=== PATIENT | female | born 1950 | race Caucasian/White ===

== ENCOUNTER 2017-03-21 05:26 | Day surgery (SDC) | payer MEDICARE, OTHER ==
[~2017-03-21 05:26] MED LIST: Dextrose 5%-0.45% NaCl 1,000 ML IV SCH; Sodium Chloride 0.9% 10 ML Syringe FLUSH PRN
[2017-03-21] MEDS ORDERED: Dextrose 5%-0.45% NaCl 1,000 ML IV SCH (06:00)
[2017-03-21] MEDS ORDERED: Sodium Chloride 0.9% 10 ML Syringe FLUSH PRN (06:00)
[2017-03-21] MEDS ORDERED: fentaNYL 100 MCG/2 ML SDV ONE (06:18)
[2017-03-21] MEDS ORDERED: Midazolam 1 MG/ML 2 ML SDV ONE (06:18)
[2017-03-21] MEDS ORDERED: fentaNYL 100 MCG/2 ML SDV IV ONE ×3 (06:32→15:18)
[2017-03-21] MEDS ORDERED: Midazolam 1 MG/ML 2 ML SDV IV ONE ×6 (06:34→15:18)
--- NOTE | 2017-03-21 07:21 | OR ---
DATE: 03/21/2017 PROCEDURES: Total colonoscopy. INSTRUMENT USED: CF-H180AL Olympus video colonoscope. PREMEDICATIONS: Fentanyl 100 mcg intravenous, Versed 3 mg intravenous, nasal O2 cannula. The procedure was done under pulse oximetry, BP recording, and mixer runner. INDICATION: Screening colonoscopic examination is done for detection of any polypoid lesions and removal, endoscopic hemostasis therapy if needed. DESCRIPTION OF PROCEDURE: Initial rectal exam was unremarkable. Rigid anoscopy was normal. The colonoscope was passed with relative ease up to the ileocecal area. Photographs were taken of the normal-appearing cecum, identified by landmarks of appendiceal orifice and double-bulged ileocecal folds. The colon was found to be tortuous and redundant. No bleeding was noted from any of the visualized areas at the commencement of the examination. Few diverticula were noted in the distal left colon along with deformity. No stricture. No vascular ectasia. No large isolated ulcerations seen. No evidence of diffuse inflammatory bowel disease in the form of friability, contact bleeding, or ulcerations. No polyp or tumor mass were identified. Probing the proximal sides of folds and flexures using adequate distention and clearing up the stool material, withdrawal of the scope was made cecum to rectum, time over 6 minutes. No bleeding was noted from any of the visualized areas at the completion of examination. IMPRESSION: Diverticulosis. The patient tolerated the procedure well. [facility] /[id number]
[2017-03-21 10:31] VITALS: BP 135/80
== END 2017-03-21 09:00 | disposition home or self-care (01) ==
LOC: DL.ENDO 05:26
PROVIDERS: ATTEND Internal Medicine Gastroenterology
DX: Z12.11 Encounter for screening for malignant neoplasm of colon (principal); K57.30 Diverticulosis of large intestine without perforation or abscess without bleeding; E66.9 Obesity, unspecified; E04.2 Nontoxic multinodular goiter; Z91.09 Other allergy status, other than to drugs and biological substances; Z98.890 Other specified postprocedural states; Z79.899 Other long term (current) drug therapy
CPT/HCPCS: G0121; J2250; J3010; J7042

== ENCOUNTER → 2019-09-11 | Day surgery (SDC) | payer MEDICARE, OTHER ==
[~2019-09-11] MED LIST changes: +Acetaminophen 325 MG Tab PO PRN; +Apraclonidine 0.5% Ophth Soln 5 ML Bot EYERT ONE; +Balanced Salt Solution Ophth Irrig 500 ML Bottle IOCULAR ONE; +Cataract Ophth Solution EYERT ONE; +Chondroitin Sulfate/Hyaluronate Sodium Ophth Inj 0.75 ML Syringe EYERT ONE; +Dexamethasone 4 MG/ML SDV IV ONE; +Dexamethasone/Neomycin/Polymyxin B Ophth Oint 3.5 GM Tube EYERT ONE; -Dextrose 5%-0.45% NaCl 1,000 ML IV SCH; +Diclofenac Sodium 0.1% Ophth Soln 5 ML Bottle EYERT ONE; +Lidocaine 1% 30 ML SDV ONE; +Midazolam 1 MG/ML 2 ML SDV IV ONE; +Moxifloxacin 0.5% Ophth Soln 3 ML Bottle EYERT ONE; +Ondansetron 4 MG/2 ML SDV IVPUSH PRN; +Phenylephrine 10% Ophth Soln 5 ML Bot EYERT ONE; +Phenylephrine 10% Ophth Soln 5 ML Bot EYERT PRN; +Povidone-Iodine 5% Sterile Ophth Soln 30 ML Bottle EYERT ONE; +Proparacaine 0.5% Ophth Soln 15 ML Bottle EYERT ONE; +Sodium Chloride 0.9% 10 ML Syringe IV ONE; +Tetracaine HCl/PF 0.5% 4 ML Bottle EYERT ONE; +Timolol Maleate 0.5% Ophth Soln 5 ML Bottle EYERT ONE; +Vancomycin 500 MG SDV EYERT ONE
--- NOTE | 2019-09-11 12:53 | OR ---
DATE: 09/11/2019 PREOPERATIVE DIAGNOSIS: Visually significant mixed cataract, right eye. POSTOPERATIVE DIAGNOSIS: Visually significant mixed cataract, right eye. PROCEDURE: Extracapsular cataract extraction with intraocular lens implant, right eye. ANESTHESIA: Topical/local MAC. COMPLICATIONS: None. INDICATION: The patient was seen in the clinic with complaints of blurred vision. Examination revealed visually significant mixed cataract. She is symptomatic and requested cataract surgery. I explained options, I offered cataract surgery, and I explained risks preoperatively including, but not limited to infection, retinal detachment, loss of vision, need for additional surgery, and risks associated with anesthesia. We discussed implant options. She has requested a toric implant. She understands that she will likely require glasses for some activities, especially near tasks. OPERATIVE DESCRIPTION: After informed consent was obtained and the risks, benefits, and alternatives were explained, the patient was brought to the operative suite and topical anesthesia was administered. The patient was then prepped and draped in the sterile fashion and attention was placed on the right eye. A sterile lid speculum was placed into the right eye to allow operative exposure. A full-thickness paracentesis was made in the temporal portion of the operative eye. Preservative-free lidocaine 0.1 mL was injected into the anterior chamber followed by viscoelastic. A full-thickness corneal incision was then made into the anterior chamber. A bent needle cystotome was used to create a small arie in the anterior capsule. The capsulorrhexis forceps was then used to create a 360-degree curvilinear capsulorrhexis. The nucleus was then removed using a phacoemulsification handpiece and the remaining cortical material was then removed with irrigation and aspiration handpiece. Following removal of the cortical material, the capsular bag was then inspected and noted to be free of any holes or tears. Viscoelastic was then injected into the capsular bag and the intraocular lens was inserted into the capsular bag. Implant was oriented to correspond with preoperative corneal dee made with the patient in the upright position. The viscoelastic material was then removed from both the anterior and posterior chambers and from behind the IOL. The lens and capsular bag were then reinspected. The IOL was well centered and the capsular bag intact. The wound and paracentesis sites were inspected and hydrated with balanced saline solution. Both were found to be self-sealing. The intraocular pressure was assessed digitally and found to be within normal range. A good red reflex was noted at the completion of the procedure. No complications occurred during the operation. At the completion of the procedure, Maxitrol, Voltaren, and Iopidine drops were placed into the operative eye. A sterile eye shield was placed over the operative eye and the patient was transported to the postoperative recovery area having tolerated the procedure well. Postoperative instructions were given along with a postoperative appointment. The patient was advised to call with any questions or concerns. [facility] /[id number]
[2019-09-11 13:27] VITALS: BP 111/60; PULSE 68
== END | disposition home or self-care (01) ==
LOC: DL.SDS 10:37
PROVIDERS: ATTEND Ophthalmology
DX: H25.9 Unspecified age-related cataract (principal); M81.0 Age-related osteoporosis without current pathological fracture; J30.2 Other seasonal allergic rhinitis
CPT/HCPCS: 66984; A9270; J1100; J2001; J2250; J3370

== ENCOUNTER 2019-09-18 10:43 | Day surgery (SDC) | payer MEDICARE, OTHER ==
[2019-09-18] MEDS ORDERED: Sodium Chloride 0.9% 10 ML Syringe IV ONE (10:44)
[2019-09-18] MEDS ORDERED: Midazolam 1 MG/ML 2 ML SDV IV ONE (10:44)
[2019-09-18] MEDS ORDERED: Dexamethasone 4 MG/ML SDV IV ONE (10:44)
[2019-09-18] MEDS ORDERED: Acetaminophen 325 MG Tab PO PRN (10:45)
[2019-09-18] MEDS ORDERED: Ondansetron 4 MG/2 ML SDV IVPUSH PRN (10:45)
[2019-09-18] MEDS ORDERED: Phenylephrine 10% Ophth Soln 5 ML Bot EYELF PRN (10:45)
[2019-09-18] MEDS: Proparacaine 0.5% Ophth Soln 15 ML Bottle EYELF ONE (11:27)
[2019-09-18] MEDS: Povidone-Iodine 5% Sterile Ophth Soln 30 ML Bottle EYELF ONE ×2 (11:27→12:19)
[2019-09-18] MEDS: Moxifloxacin 0.5% Ophth Soln 3 ML Bottle EYELF ONE (11:29)
[2019-09-18] MEDS: Timolol Maleate 0.5% Ophth Soln 5 ML Bottle EYELF ONE (11:30)
[2019-09-18] MEDS: Phenylephrine 10% Ophth Soln 5 ML Bot EYELF ONE (11:30)
[2019-09-18] MEDS: Cataract Ophth Solution EYELF ONE (11:30)
[2019-09-18] MEDS: Sodium Chloride 0.9% 10 ML Syringe FLUSH PRN (11:40)
[2019-09-18] MEDS: Tetracaine HCl/PF 0.5% 4 ML Bottle EYELF ONE (12:19)
[2019-09-18] MEDS: Apraclonidine 0.5% Ophth Soln 5 ML Bot EYELF ONE (12:19)
[2019-09-18] MEDS: Diclofenac Sodium 0.1% Ophth Soln 5 ML Bottle EYELF ONE (12:20)
[2019-09-18] MEDS: Dexamethasone/Neomycin/Polymyxin B Ophth Oint 3.5 GM Tube EYELF ONE (12:20)
[2019-09-18] MEDS: Chondroitin Sulfate/Hyaluronate Sodium Ophth Inj 0.75 ML Syringe EYELF ONE (12:20)
[2019-09-18] MEDS: Lidocaine 1% 30 ML SDV ONE (12:20)
[2019-09-18] MEDS: Balanced Salt Solution Ophth Irrig 500 ML Bottle IOCULAR ONE (12:20)
[2019-09-18] MEDS: Vancomycin 500 MG SDV EYELF ONE (12:20)
[2019-09-18 14:22] VITALS: BP 114/71; PULSE 68
--- NOTE | 2019-09-19 08:19 | OR ---
DATE: 09/18/2019 PREOPERATIVE DIAGNOSIS: Visually significant mixed cataract, left eye. POSTOPERATIVE DIAGNOSIS: Visually significant mixed cataract, left eye. PROCEDURE: Extracapsular cataract extraction with intraocular lens implant, left eye. ANESTHESIA: Topical/local MAC. COMPLICATIONS: None. INDICATION: Ms. Watters was seen in the clinic. She has complained of a progressive change in vision. Her examination revealed visually-significant cataract. I explained the options. I offered cataract surgery. I explained risks including, but not limited to, infection, retinal detachment, loss of vision, and need for additional surgery amongst others. We discussed implant options. She has requested a toric implant targeting ametropia to mild myopia. She understands that she will require glasses for some activities, especially near work. She is symptomatic and voiced an understanding with respect to risks including the potential for vision loss, and she is motivated to proceed. OPERATIVE DESCRIPTION: After informed consent was obtained and the risks, benefits, and alternatives were explained, the patient was brought to the operative suite and topical anesthesia was administered. The patient was then prepped and draped in the sterile fashion and attention was placed on the left eye. A sterile lid speculum was placed into the left eye to allow operative exposure. A full-thickness paracentesis was made in the temporal portion of the operative eye. Preservative-free lidocaine 0.1 mL was injected into the anterior chamber followed by viscoelastic. A full-thickness corneal incision was then made into the anterior chamber. A bent needle cystotome was used to create a small arie in the anterior capsule. The capsulorrhexis forceps was then used to create a 360-degree curvilinear capsulorrhexis. The nucleus was then removed using a phacoemulsification handpiece and the remaining cortical material was then removed with irrigation and aspiration handpiece. Following removal of the cortical material, the capsular bag was then inspected and noted to be free of any holes or tears. Viscoelastic was then injected into the capsular bag and the intraocular lens was inserted into the capsular bag. The implant was oriented to correspond with preoperative corneal dee made with the patient in the upright position. The viscoelastic material was then removed from both the anterior and posterior chambers and from behind the IOL. The lens and capsular bag were then reinspected. The IOL was well centered and the capsular bag intact. The wound and paracentesis sites were inspected and hydrated with balanced saline solution. Both were found to be self-sealing. The intraocular pressure was assessed digitally and found to be within normal range. A good red reflex was noted at the completion of the procedure. No complications occurred during the operation. At the completion of the procedure, Maxitrol, Voltaren, and Iopidine drops were placed into the operative eye. A sterile eye shield was placed over the operative eye and the patient was transported to the postoperative recovery area having tolerated the procedure well. Postoperative instructions were given along with a postoperative appointment. The patient was advised to call with any questions or concerns. [facility] /[id number]
== END 2019-09-18 13:27 | disposition home or self-care (01) ==
LOC: DL.SDS 10:43
PROVIDERS: ATTEND Ophthalmology
DX: H25.9 Unspecified age-related cataract (principal); Z91.048 Other nonmedicinal substance allergy status
CPT/HCPCS: 00142; A9270-GY; J1100; J2001; J2250; J3370